=== PATIENT | female | born 1955 | race American Indian/Alaskan Native ===

== ENCOUNTER 2016-10-27 12:01 | Outpatient (CLI) | payer OTHER ==
--- NOTE | 2016-10-27 13:04 | XRay Report ---
BILATERAL KNEES, 2 VIEWS History: Bilateral knee pain. Findings: Mild to moderate osteoarthritic changes are identified bilaterally. The left knee is slightly more affected. There is no evidence for fracture, osteochondral defect or large joint effusion. Normal bone mineralization. Impression: Osteoarthritic changes. No acute process.
== END 2016-10-27 12:02 | disposition home or self-care (01) ==
LOC: XRAY 12:01
PROVIDERS: ATTEND Internal Medicine
DX: M17.0 Bilateral primary osteoarthritis of knee (principal); I10 Essential (primary) hypertension; F32.9 Major depressive disorder, single episode, unspecified; F41.9 Anxiety disorder, unspecified; G47.00 Insomnia, unspecified; G25.81 Restless legs syndrome